=== PATIENT | male | born 1940 | race Caucasian/White ===

== ENCOUNTER → 2017-06-14 | Outpatient (CLI) | payer BC | LOC: FIMAGING 11:40 | PROVIDERS: ATTEND Orthopaedic Surgery Orthopaedic Surgery of the Spine | DX: M54.9 Dorsalgia, unspecified (principal); M41.9 Scoliosis, unspecified; M51.36 Other intervertebral disc degeneration, lumbar region; R93.421 Abnormal radiologic findings on diagnostic imaging of right kidney ==

== ENCOUNTER → 2017-07-05 | Outpatient (CLI) | payer BC | LOC: FIMAGING 10:36 | PROVIDERS: ATTEND Orthopaedic Surgery Orthopaedic Surgery of the Spine | DX: M79.89 Other specified soft tissue disorders (principal) ==

== ENCOUNTER → 2017-07-26 | Outpatient (CLI) | payer BC, OTHER | LOC: FIMAGING 10:49 | PROVIDERS: ATTEND Orthopaedic Surgery Orthopaedic Surgery of the Spine | DX: Z98.1 Arthrodesis status (principal); N20.0 Calculus of kidney; M51.36 Other intervertebral disc degeneration, lumbar region ==

== ENCOUNTER → 2017-09-07 | Outpatient (CLI) | payer OTHER, BC | LOC: FIMAGING 09:47 | PROVIDERS: ATTEND Orthopaedic Surgery Orthopaedic Surgery of the Spine | DX: Z09 Encounter for follow-up examination after completed treatment for conditions other than malignant neoplasm (principal); Z98.1 Arthrodesis status ==

== ENCOUNTER → 2017-12-03 | Outpatient (CLI) | payer BC, OTHER | LOC: FIMAGING 09:18 | PROVIDERS: ATTEND Orthopaedic Surgery Orthopaedic Surgery of the Spine | DX: M47.896 Other spondylosis, lumbar region (principal); M46.96 Unspecified inflammatory spondylopathy, lumbar region; M41.85 Other forms of scoliosis, thoracolumbar region; I70.0 Atherosclerosis of aorta; N20.0 Calculus of kidney ==